=== PATIENT | female | born 1960 | race African-American/Black ===

== ENCOUNTER → 2019-12-09 | Outpatient (CLI) | payer OTHER | LOC: LAB 12-08 13:33 | PROVIDERS: ATTEND Hospitalist | DX: Z20.828 Contact with and (suspected) exposure to other viral communicable diseases (principal) ==

== ENCOUNTER → 2020-02-15 | Outpatient (CLI) | payer OTHER | LOC: LAB 12:57 | PROVIDERS: ATTEND Specialist | DX: Z20.828 Contact with and (suspected) exposure to other viral communicable diseases (principal) ==

== ENCOUNTER → 2020-02-20 | Outpatient (CLI) | payer OTHER | LOC: LAB | PROVIDERS: ATTEND Specialist | DX: Z20.828 Contact with and (suspected) exposure to other viral communicable diseases (principal) ==

== ENCOUNTER → 2020-02-27 | Outpatient (CLI) | payer OTHER | LOC: LAB 12:23 | PROVIDERS: ATTEND Specialist | DX: Z20.828 Contact with and (suspected) exposure to other viral communicable diseases (principal) ==

== ENCOUNTER → 2020-03-05 | Outpatient (CLI) | payer OTHER | LOC: LAB 07:43 | PROVIDERS: ATTEND Specialist | DX: Z20.828 Contact with and (suspected) exposure to other viral communicable diseases (principal) ==

== ENCOUNTER → 2020-03-12 | Outpatient (CLI) | payer OTHER | LOC: LAB 08:22 | PROVIDERS: ATTEND Specialist | DX: Z20.822 Contact with and (suspected) exposure to COVID-19 (principal) ==

== ENCOUNTER → 2020-03-19 | Outpatient (CLI) | payer OTHER | LOC: LAB 07:44 | PROVIDERS: ATTEND Specialist | DX: Z20.822 Contact with and (suspected) exposure to COVID-19 (principal) ==

== ENCOUNTER 2021-03-26 06:52 | Emergency (ER) | payer OTHER ==
[~2021-03-26] VITALS: Ht 162.6 cm; Wt 86.2 kg
[2021-03-26 07:22] LABS: ABSOLUTE NEUTROPHILS 4.1 thou/uL (1.4-8.2); BASOPHILS 0.6 % (0.0-2.0); EOSINOPHILS 1.4 % (0.0-3.0); HEMATOCRIT 40.2 % (37.0-47.0); HEMOGLOBIN 13.7 gm/dL (12.0-15.0); LYMPHOCYTES 47.9 % (24.0-44.0); MCH 30.1 pg (26.0-34.0); MCHC 34.1 g/dL (28.0-37.0); MCV 88.2 fL (80.0-100.0); MONOCYTES 11.3 % (1.0-8.0); PLATELET COUNT 250 thou/uL (150-400); POLYS 38.8 % (36.0-66.0); RBC 4.55 mil/uL (4.20-5.00); RDW 13.2 % (10.5-14.5); WBC 10.4 thou/uL (4.0-11.0)
[2021-03-26 07:34] LABS: CALCIUM 9.3 mg/dL (8.5-10.1); CREATININE 0.7 mg/dL (0.6-1.0); POTASSIUM 3.1 mmol/L (3.5-5.1)
[2021-03-26 08:02] LABS: APTT 23.4 Seconds (24.5-32.8); INR 0.93; PROTIME 10.2 Seconds (10.5-12.1)
[2021-03-26 08:18] VITALS: BP 167/80
--- NOTE | 2021-03-26 15:32 | EKG ---
[place] [id number] [facility] [place] [address] ELECTROCARDIOGRAM REPORT Name: MARILIASARITHA Room #: DEP Estela#: [id number] Admission: 03/26/21 Attend Phys: Discharge: 03/26/21 Date of : 62 Report #: [id number] [facility] ED Test Date: 2021-03-26 Test Time: 07:03:29 Pat Name: SARITHA CAPELLAN Department: Room: Gender: F Nut Feeder: MITA : 1960 Requested By: Rashaad Yanes Order Number: [id number] MD: Yogesh Noonan Measurements Intervals [place] Rate: 62 P: 49 MS: 155 QRS: 12 QRSD: 108 T: 53 QT: 500 QTc: 508 Interpretive Statements Sinus rhythm Abnormal R-wave progression, early transition Prolonged QT interval Baseline wander in lead(s) II,III,aVR,aVL,aVF,V1 No previous ECG available for comparison Electronically Signed On 03-26-2021 15:32:17 [employer] by Yogesh Noonan [email or web address] <ELECTRONICALLY SIGNED> By: Yogesh Noonan MD, [facility] 03/26/21 1532 2 2 Yogesh Noonan MD, FAC /EPI
== END 2021-03-26 08:20 | disposition short-term general hospital (02) ==
LOC: ER 06:52
PROVIDERS: Emergency Medicine
DX: I60.9 Nontraumatic subarachnoid hemorrhage, unspecified (principal); Z20.822 Contact with and (suspected) exposure to COVID-19; I10 Essential (primary) hypertension